=== PATIENT | male | born 1930 | race Caucasian/White ===

== ENCOUNTER 2017-11-15 17:11 | Inpatient (IN) | payer OTHER ==
[~2017-11-15] VITALS: Ht 157.5 cm; Wt 92.7 kg
[~2017-11-15 17:11] MED LIST: ASPIRIN81 M1 PO; AZITHROMYCIN500 M1 PO; BENTYL20 MG PO; COLCHICINE0.6 M1 PO; COSOPT EYE DROPS5 ML RIGHT EYE; FINASTERIDE5 MG PO; FLOMAX0.4 MG PO; FLUCONAZOLE100 MG PO; HYDROCHLOROTH12.5 M3 PO; LATANOPROST2.5 ML BOTH EYES; LEVAQUIN500 MG PO; LISINOPRIL-HCT1 EAC3 PO; LISINOPRIL20 MG PO; LORTAB 5-325 M1 EACH PO; MIRALAX255 GM PO; MOTRIN600 MG PO; NORVASC2.5 MG PO; OMEPRAZOLE40 MG PO; PHENERGAN-CODE120 ML PO; PRILOSEC20 MG PO; PRILOSEC40 MG PO; PROTONIX40 MG PO; PROVENTIL HFA6.7 GM IH; SINGULAIR10 MG PO; VERAPAMIL HCL180 MG PO; Vitamin B-12 PO; ZESTORETIC,P1 TABLE1 PO; ZESTRIL,PRINIVI20 MG PO; ZETIA10 MG PO; ZOFRAN ODT4 MG PO
[2017-11-15 18:57] LABS: HEMATOCRIT 41.1 % (38.0-50.0); HEMOGLOBIN 14.1 G/DL (12.5-16.6); MCH 30.7 PG (29.0-34.0); MCHC 34.3 G/DL (30.0-36.0); MCV 89.5 FL (86-99); PLATELET COUNT 206 K/uL (156-360); RBC DIS.WIDTH-SD 42.5 % (39-53); RED BLOOD COUNT 4.59 M/uL (4.00-5.50); WHITE BLOOD COUNT 8.5 K/uL (4.1-10.2)
[2017-11-15 19:07] LABS: APPEARANCE CLEAR ((CLEAR)); BILIRUBIN NEGATIVE; BLOOD NEGATIVE; COLOR AMBER ((YELLOW)); GLUCOSE (STRIP) 50; KETONES NEGATIVE; LEUKOCYTES NEGATIVE; NITRITE NEGATIVE; PROTEIN (STRIP) 30; SPECIFIC GRAVITY 1.025 (1.000-1.030); UCUL ADDED? NO; UROBILINOGEN 0.2 MG/DL (0.2-1.0)
[2017-11-15 19:07] LABS: CHLORIDE 104 mEq/L (99-109); POTASSIUM 3.6 mEq/L (3.7-5.4); SODIUM 142 mEq/L (136-147)
[2017-11-15 19:10] LABS: GLUCOSE 126 mg/dL (70-99); TOTAL PROTEIN 7.3 g/dL (6.4-8.3)
[2017-11-15 19:11] LABS: TOTAL BILIRUBIN 0.5 mg/dL (0.0-1.0)
[2017-11-15 19:13] LABS: ALKALINE PHOSPHATASE 80 IU/L (3-129); CREATININE 0.9 mg/dL (0.6-1.3); GFR ESTIMATE (CALCULATED) > 59 mL/min/ (58.99-99999)
[2017-11-15 19:14] LABS: UREA NITROGEN (BUN) 14 mg/dL (9-23)
[2017-11-15 19:15] LABS: AST (GOT) 16 IU/L (2-34); DIRECT BILIRUBIN 0.2 mg/dL (0.0-0.3)
[2017-11-15 19:16] LABS: ALT (GPT) 13 IU/L (3-49)
[2017-11-15 19:17] LABS: LIPASE 14 U/L (1.0-51.0)
[2017-11-15 19:19] LABS: TROP-I INTERPRETATION NEGATIVE; TROPONIN-I 0.02 ng/mL (0.0-0.30)
[2017-11-15] MEDS ORDERED: MICROZIDE12.5 M1 PO (22:41)
[2017-11-15] MEDS ORDERED: MIRALAX17 GM PO (22:42)
[2017-11-15] MEDS ORDERED: LASIX40 MG PO (22:43)
[2017-11-15] MEDS ORDERED: KLOR-CON M1010 MEQ PO (22:43)
[2017-11-15] MEDS ORDERED: COZAAR100 MG PO (22:43)
[2017-11-15] MEDS ORDERED: ZETIA10 MG PO (22:44)
[2017-11-15] MEDS ORDERED: PROSCAR5 MG PO (22:44)
[2017-11-15] MEDS ORDERED: ERGOCALCIF50000 UNIT PO (22:44)
[2017-11-15] MEDS ORDERED: OMEPRAZOLE40 M1 PO (22:45)
[2017-11-15] MEDS ORDERED: CLOTRIMAZOLE-BE15 GM TP (22:46)
[2017-11-15] MEDS ORDERED: KENALOG,ARISTOC80 GM TP (22:46)
[2017-11-15] MEDS ORDERED: NEURONTIN100 MG PO (22:46)
[2017-11-15] MEDS ORDERED: IMDUR30 MG PO (22:47)
[2017-11-15 23:56] LABS: MAGNESIUM 2.3 mg/dL (1.3-2.7)
[2017-11-16 00:01] LABS: PHOSPHORUS 2.3 mg/dL (2.5-4.9)
[2017-11-16 01:10] LABS: TROP-I INTERPRETATION NEGATIVE; TROPONIN-I 0.01 ng/mL (0.0-0.30)
[2017-11-16 01:47] VITALS: BP 195/88
[2017-11-16 03:51] VITALS: BP 146/71
[2017-11-16 05:52] LABS: HEMATOCRIT 39.6 % (38.0-50.0); HEMOGLOBIN 13.5 G/DL (12.5-16.6); MCH 30.2 PG (29.0-34.0); MCHC 34.1 G/DL (30.0-36.0); MCV 88.6 FL (86-99); PLATELET COUNT 203 K/uL (156-360); RBC DIS.WIDTH-CV 12.9 % (11.8-14.6); RBC DIS.WIDTH-SD 41.4 % (39-53); RED BLOOD COUNT 4.47 M/uL (4.00-5.50); WHITE BLOOD COUNT 7.4 K/uL (4.1-10.2)
[2017-11-16 06:11] LABS: TROP-I INTERPRETATION NEGATIVE; TROPONIN-I < 0.01 ng/mL (0.0-0.30)
[2017-11-16 06:16] LABS: ALBUMIN 3.9 G/DL (3.2-4.8); CHLORIDE 103 MEQ/L (99-109); POTASSIUM 3.5 MEQ/L (3.7-5.4); SODIUM 142 MEQ/L (136-147); TOTAL BILIRUBIN 0.7 MG/DL (0.0-1.0)
[2017-11-16 06:22] LABS: ALKALINE PHOSPHATASE 69 IU/L (3-129); ALT (GPT) 10 IU/L (3-49); AST (GOT) 14 IU/L (2-34); CREATININE 0.9 MG/DL (0.6-1.3); GFR ESTIMATE (CALCULATED) > 59 mL/min/ (58.99-99999); GLUCOSE 179 mg/dL (70-99); TOTAL PROTEIN 6.4 G/DL (6.4-8.3); UREA NITROGEN (BUN) 15 mg/dL (9-23)
[2017-11-16 07:57] VITALS: BP 140/65
[2017-11-16 11:59] VITALS: BP 141/65
[2017-11-16] MEDS ORDERED: ASPIR-LOW81 MG PO (12:55)
[2017-11-16] MEDS ORDERED: SPIRONOLACTONE25 MG PO (12:55)
[2017-11-16] MEDS ORDERED: CARVEDILOL3.125 MG PO (12:55)
[2017-11-16] MEDS ORDERED: KLOR-CON M1010 MEQ PO (12:56)
[2017-11-16] MEDS ORDERED: FUROSEMIDE20 MG PO (12:56)
[2017-11-16 15:53] VITALS: BP 146/70
== END 2017-11-16 16:10 | disposition home or self-care (01) | DRG 293 ==
LOC: EME 17:11 → EDOF 22:07 → 5SOUTH 22:07 → ENRESERV 22:11 → 5SOUTH 11-16 01:22 → ENPENDDIS 11-16 15:31 → 5SOUTH 11-16 16:10
PROVIDERS: Hospitalist; Physician Assistant Medical
DX: I11.0 Hypertensive heart disease with heart failure (principal); I50.31 Acute diastolic (congestive) heart failure; E78.5 Hyperlipidemia, unspecified; G30.9 Alzheimer's disease, unspecified; F02.80 Dementia in other diseases classified elsewhere, unspecified severity, without behavioral disturbance, psychotic disturbance, mood disturbance, and anxiety; H40.9 Unspecified glaucoma; I27.20 Pulmonary hypertension, unspecified; I34.0 Nonrheumatic mitral (valve) insufficiency; I36.1 Nonrheumatic tricuspid (valve) insufficiency; I48.91 Unspecified atrial fibrillation; J44.9 Chronic obstructive pulmonary disease, unspecified; K21.9 Gastro-esophageal reflux disease without esophagitis; K76.0 Fatty (change of) liver, not elsewhere classified; N40.0 Benign prostatic hyperplasia without lower urinary tract symptoms; R63.0 Anorexia; Z85.038 Personal history of other malignant neoplasm of large intestine; Z87.11 Personal history of peptic ulcer disease; Z90.49 Acquired absence of other specified parts of digestive tract; Z79.51 Long term (current) use of inhaled steroids
CPT/HCPCS: 71046; 71275; 74177; 80048; 80053; 80076; 81003; 82306; 83605; 83690; 83735; 83880; 84100; 84145 90; 84439; 84443; 84484; 85027; 93005; 93306; 93970; 94640; 94799; 99281; 99285; J1940; J7030